=== PATIENT | male | born 1990 | race Caucasian/White ===

== ENCOUNTER 2021-10-31 16:59 | Emergency (ER) | payer OTHER ==
[2021-10-31] MEDS ORDERED: Sodium Chloride 0.9% 10 ML Syringe FLUSH PRN (17:13)
[2021-10-31] MEDS ORDERED: Sodium Chloride 0.9% 500 ML IV ONE ×2 (17:15→18:26)
[2021-10-31] MEDS ORDERED: Lidocaine 1% with EPINEPHrine 1:100,000 50 ML MDV SUBCUT ONE (17:15)
[2021-10-31] MEDS ORDERED: Diphtheria,Pertussis(Acell),Tetanus Vaccine 0.5 ML Syringe IM ONE (17:15)
[2021-10-31] MEDS ORDERED: HYDROmorphone 1 MG/ML Syringe IVPUSH ONE ×2 (17:28→18:59)
[2021-10-31 17:34] LABS: ESTIMATED GFR 92 mL/min (>60)
[2021-10-31] MEDS: Bacitracin Oint 1 GM U/D Packet TOP ONE ×2 (17:41→17:44)
[2021-10-31 18:12] VITALS: BP 140/107; PULSE 117
[2021-10-31] MEDS ORDERED: Ketorolac 30 MG/ML SDV IVPUSH ONE (18:51)
[2021-10-31] MEDS ORDERED: Iopamidol 755 Mg/ML 100 ML Bottle IV ONE (20:30)
[2021-10-31] MEDS ORDERED: Sodium Chloride 0.9% 100 ML IV ONE (20:30)
== END 2021-10-31 21:44 | disposition home or self-care (01) ==
LOC: JP.ED 16:59
DX: S12.590A Other displaced fracture of sixth cervical vertebra, initial encounter for closed fracture (principal); S01.81XA Laceration without foreign body of other part of head, initial encounter; S01.01XA Laceration without foreign body of scalp, initial encounter; E86.0 Dehydration; Z23 Encounter for immunization; Z91.030 Bee allergy status; Z79.899 Other long term (current) drug therapy; V89.2XXA Person injured in unspecified motor-vehicle accident, traffic, initial encounter; Y92.410 Unspecified street and highway as the place of occurrence of the external cause
CPT/HCPCS: 12011; 36415; 70450; 70498; 72125; 80048; 81001; 85025; 85610; 85730; 90471; 90715; 96361; 96374; 96375; 96376; 99285; J1170; J1885; J3490; J7040; Q9967